=== PATIENT | male | born 1985 ===

== ENCOUNTER 2021-10-11 23:45 | Emergency (ER) | payer MEDICAID ==
[2021-10-12 00:59] LABS: ESTIMATED GFR 99 mL/min (>60)
== END 2021-10-12 07:11 | disposition home or self-care (01) ==
LOC: JP.ED 23:45
DX: F10.920 Alcohol use, unspecified with intoxication, uncomplicated (principal); Z88.0 Allergy status to penicillin
CPT/HCPCS: 36415; 80053; 80305-QW; 80307; 81001; 85025; 99284; 99285